=== PATIENT | male | born 1990 | race Caucasian/White ===

== ENCOUNTER 2018-12-14 12:18 | Emergency (ER) | payer MEDICAID ==
[~2018-12-14] VITALS: Wt 78.0 kg
[~2018-12-14 12:18] MED LIST: BACITUD TOP; CEPH-443 PO; IBUP-1542 PO; OXYC-279 PO
[2018-12-14 12:30] VITALS: BP 127/69; PULSE 72; RESP 18
== END 2018-12-14 12:49 | disposition home or self-care (01) ==
LOC: E/R 12:18
DX: Z48.01 Encounter for change or removal of surgical wound dressing (principal)
CPT/HCPCS: 99282